=== PATIENT | female | born 1975 | race Two or more races ===

== ENCOUNTER → 2024-04-01 | Outpatient (CLI) | payer MEDICAID, SELFPAY ==
--- NOTE | 2024-04-01 12:00 | XR_ITS ---
Examination: MRI orbits face neck, without intravenous contrast. MRI orbits face neck , with intravenous contrast. Exam date and time: April 01, 2024 1212 hours Comparison October 20, 2023 INDICATIONS: Diagnosis malignant neoplasm thyroid gland, MR orbits October 20, 2023 left carotid triangle lymphadenopathy, the largest lymph node 12 mm, right carotid triangle lymphadenopathy, the largest lymph node 9 mm Technique: Multiple axial, sagittal and coronal images of the orbits face neck have been obtained with the Siemens high-resolution 1.5 Susan MRI scanner. Images obtained included T2 weighted fat suppressed sagittal sections, TR 3500, TE 46, T2 weighted coronal fat suppressed images, TR 3050, TE 84, T2-weighted transverse fat suppressed images, TR 30-60, TE 63, proton density transverse images, TR 4720, TE 46, and T1 weighted coronal images, TR 560, TE 13. Axial, sagittal and coronal images are obtained post intravenous injection 14 cc gadolinium. Findings: Large retention cysts in the right maxillary antrum Mild soft tissue tonsillar hypertrophy Bilateral carotid triangle lymph nodes again noted, the largest on the right side millimeters on the left side 8 mm Subcentimeter submental lymph nodes Symmetrical submandibular glands The larynx appears normal Normal epiglottis IMPRESSION: No current pathologic lymphadenopathy, consider 3-6 month follow-up ultrasound soft tissue neck
== END | disposition home or self-care (01) ==
LOC: SMRI 11:59
PROVIDERS: PCP Family Medicine; Referring Provider Internal Medicine Hematology & Oncology; Visit Provider Internal Medicine Hematology & Oncology
DX: C73 Malignant neoplasm of thyroid gland (principal)
CPT/HCPCS: 70543; A9579

== ENCOUNTER → 2024-04-07 | Outpatient (CLI) | payer MEDICAID, SELFPAY ==
[2024-04-07 16:46] LABS: Basophils % (Auto) 1 % (0-2.5); Eosinophils # (Auto) 0.5 Thou/mm3 (0.0-0.5); Eosinophils % (Auto) 7 % (0-10); Hematocrit 40.1 % (36.0-46.0); Hemoglobin 13.7 g/dL (12.0-16.0); Immature Granulocytes % (Auto) 1 % (0-0); Immature Granulocytes Auto 0.05 Thou/mm3 (0.00-0.00); Lymphocytes # (Auto) 1.4 Thou/mm3 (1.0-4.8); Lymphocytes % (Auto) 22 % (10-50); Mean Corpuscular HGB Conc 34.2 g/dl (31.0-37.0); Mean Corpuscular Hemoglobin 28.3 pg (25.0-35.0); Mean Corpuscular Volume 83 fL (80-100); Monocytes # (Auto) 0.5 Thou/mm3 (0.0-0.8); Monocytes % (Auto) 7 % (0-12); Neutrophils # (Auto) 4.2 Thou/mm3 (1.8-7.7); Neutrophils % (Auto) 63 % (37-80); Nucleated Red Blood Cell % 0 /100 WBC (0); Platelet Count 401 Thou/mm3 (140-440); RDW Standard Deviation 37.5 fL (36.4-46.3); Red Blood Count 4.84 Miln/mm3 (4.00-5.20); White Blood Count 6.6 Thou/mm3 (3.6-11.0)
[2024-04-07 17:12] LABS: Alanine Aminotransferase 30 U/L (10-49); Albumin, Serum 4.4 gm/dL (3.5-5.0); Albumin/Globulin Ratio 1.6 (1.2-2.2); Alkaline Phosphatase 60 U/L (46-116); Anion Gap 8 (7-16); Aspartate Amino Transferase 17 U/L (0-34); BUN/Creatinine Ratio 16 Ratio (12-20); Bilirubin,Total 0.3 mg/dL (0.3-1.2); Blood Urea Nitrogen 14 mg/dL (9-23); Carbon Dioxide 25.1 mMol/L (20.0-31.0); Carcinoembryonic Antigen 1.4 ng/mL (0.0-5.0); Chloride 102 mMol/L (98-107); Creatinine (Component) 0.9 mg/dL (0.6-1.3); Globulin 2.8 gm/dL (2.3-3.5); Glucose 163 mg/dL (74-106); Osmolality,Calculated 274 (275-295); Potassium 4.1 mMol/L (3.4-5.1); Sodium 135 mMol/L (136-145); Thyroid Stimulating Hormone 0.55 uIU/mL (0.55-4.78); Total Protein 7.2 gm/dL (5.7-8.2); eGFR > 60 See Note
[2024-04-13 07:01] LABS: Thyroglobulin Antibodies* <1 IU/mL (< OR = 1)
== END | disposition home or self-care (01) ==
LOC: SCTO 15:36
PROVIDERS: PCP Family Medicine; Referring Provider Internal Medicine Hematology & Oncology; Visit Provider Internal Medicine Hematology & Oncology
DX: C73 Malignant neoplasm of thyroid gland (principal)
CPT/HCPCS: 36415; 80053; 82378; 84439; 84443; 85025; 86800

== ENCOUNTER 2024-04-08 09:58 | Outpatient (RCR) | payer MEDICAID, SELFPAY ==
--- NOTE | 2024-04-19 20:18 | CTCFLWUP_ITS ---
Patient: KENZIE FRIEND : 1975 Page 4 of 5 FOLLOW UP NOTE DATE OF SERVICE: 04/08/2024 NAME: KENZIE FRIEND ACCOUNT: [id number] : 1975 AGE: 48 DIAGNOSIS: History of stage II (pT1b N1b cM0) papillary thyroid carcinoma s/p total thyroidectomy and bilateral central neck dissection (06/11/2022) followed by radioactive iodine treatment (11/02/2022). 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 REASON FOR TODAY?S VISIT: This is office follow-up visit. Ms. Friend is here at [facility]. Lately, our MA is helping with the translation. Since last visit kasia ent had CT-guided biopsy of the enlarged lymph node on the left side of the neck. Pathology showed i t to be benign lesion. Ms. Friend denies any other complaints today. Denies any cough, chest pain, abdominal pain o r leg cramps. Ambulating well without any help. HISTORY OF PRESENT ILLNESS: This is a 48-year-old Kyrgyz-speaking female with history of pa pillary thyroid carcinoma. 01/18/2022: Ms. Friend had CT-guided biopsy of the right neck lymph node 06/11/2022: Patient had surgery done at [facility] 06/15/2022: CT scan of the soft tissue of the neck with contrast is started on Eliquis. 10/23/2022: Eliquis discontinued. 11/02/2022: Patient had 49.5 mCi of I-131 radioiodine treatment. 11/20/2022: Ultrasound of the soft tissue of the neck? 11/27/2022: CT scan of the soft tissue of the neck with IV contrast 06/13/2023: MRI of the neck 06/17/2023: Thyroglobulin antibody less than 1.0, thyroglobulin 0.7, TSH 8.49. Dr. Calderon has increased l evothyroxine. MRI of the orbits, face, neck with and without contrast? 10/20/2023: MRI of the face and neck with IV contrast PAST MEDICAL HISTORY: HTN Diabetes GERD High?cholesterol PAST SURGICAL HISTORY: ?-x?1 MEDICATIONS: 1. albuterol sulfate - 90 mcg/actuation 2 Puff(s) Twice a Day 2. atorvastatin - 20 mg 1 tab Every day before sleep 3. atorvastatin - 40 mg 1 tab In the morning 4. azelastine - 0.05 % 1 drops Daily 5. calcitriol - 0.25 mcg 1 Capsule Daily 6. Calcium + Vitamin D - 600 mg calcium- 200 unit 1 tab Twice a Day 7. Daily Car W/Minerals - 1 tab Daily 8. levothyroxine - 137 mcg 1 tab Daily 9. levothyroxine - 125 mcg 1 tab Daily 10. levothyroxine - 150 mcg 1 tab Daily 11. loratadine - 10 mg 1 tab Daily 12. losartan - 50 mg 1 tab Daily 13. medroxyPROGESTERone - 10 mg 1 tab As directed 14. metFORMIN - 500 mg 1 tab Daily 15. omeprazole - 20 mg 1 Daily?Palabra Meds? Medications Last Reconciled by Rocio Mccullough MA on 10/22/2023 ALLERGIES: No Known Drug Allergies REVIEW OF SYSTEMS:?Clone ROS? Neurological: No headache, seizures or blurring of vision. Gastrointestinal: No nausea, vomiting, diarrhea or constipation. Cardiovascular: No palpitations or angina pains. Respiratory: No cough, chest pain or shortness of breath. PHYSICAL EXAMINATION:?ClonePE? VITAL SIGNS: Alert and oriented x 4 no masses palpable on both sides of the neck CHEST: Clear to auscultation. No wheezes or rales audible. CARDIAC: Rhythm regular, no murmurs or gallops present. ABDOMEN: Soft. No hepatosplenomegaly. EXTREMITIES: No pedal edema or cyanosis. ASSESSMENT and plan: #1 history of papillary thyroid carcinoma status post thyroidectomy MRI of the orbits, face and neck with and without contrast showed 12 mm enlarged lymph node in the le ft carotid triangle as well as a 9 mm lymph node in the right carotid triangle. CT-guided biopsy of t he left-sided cervical lymph node showed scant lymphoid tissue favoring benign. And is on levothyroxine calcium and vitamin D Continue to monitor CBC CMP TSH T4 Endocrinology follow-up #2 iron deficiency anemia was treated with Venofer Patient's hemoglobin is normal now Electronically Signed by Dr Yu CC: PCP: Sav Wilson Referring: Sav Wilson This document was completed utilizing speech recognition software. Grammatical errors, random word in sertions, pronoun errors, and incomplete sentences are an occasional consequence of this system due t o software limitations, ambient noise, and hardware issues. Any formal questions or concerns about th e content, text or information contained within the body of this dictation should be directly address ed to the provider for clarification.
== END 2024-04-11 23:59 | disposition home or self-care (01) ==
LOC: SCTC 09:58
PROVIDERS: PCP Family Medicine; Referring Provider Family Medicine; Visit Provider Internal Medicine Hematology & Oncology
DX: C73 Malignant neoplasm of thyroid gland (principal); E89.0 Postprocedural hypothyroidism; Z79.890 Hormone replacement therapy; Z86.2 Personal history of diseases of the blood and blood-forming organs and certain disorders involving the immune mechanism
CPT/HCPCS: 99212; G0463

== ENCOUNTER 2024-05-04 23:21 | Emergency (ER) | payer MEDICAID, SELFPAY ==
[2024-05-04 23:30] VITALS: BP 155/90; PULSE 104; RESP 22; TEMP 36.9; O2SAT 98
--- NOTE | 2024-05-04 23:33 | EDNOTE_ITS ---
ED Fever RME/HPI General Chief Complaint: Fever Stated Complaint: FEVER / GENERAL PAIN Time Seen by Provider: 05/04/24 23:23 Arrival date/time: 05/04/24 23:21 RME / HPI RME / HPI Narrative: This section includes all my notes and documentations, including HPI, PE, and ED course. Jose Calderon MD HPI: 48-year-old female here with about a week history of worsening cough, productive cough, purulent sputum, and dyspnea. With headache and fever and chills and bodyaches and malaise. No other complaints. ROS: All negative except as documented in HPI. Physical Exam: General: Alert and oriented. No acute distress when remaining still. Eyes: Conjunctivae and lids clear. ENT: No nasal congestion. Pharynx normal. TM normal bilaterally. Neck: Supple. Heart: RRR. Lungs: No respiratory distress. Good air movement with rhonchi. Abdomen: Soft and nontender. Legs: No clubbing, cyanosis, edema. Skin: Warm and dry. Neuro: Alert and oriented X 3. I reviewed all diagnostic test results. My interpretation of the chest x-ray is increased bronchial markings. COVID/influenza/strep negative. At this point, diagnoses include bronchitis Treatment here included Zofran ODT 4 mg and prednisone 60 mg and Zithromax 500 mg and two Tylenol #3. Significant improvement noted. Recommended a trial of treatment at home. Based on my best medical judgment, made decision no further evaluation or treatment indicated at this time. Patient understands and agrees to the discharge instructions customized and printed, see below. Discharge instructions from Dr. Calderon: --No physical exertion for 3 days to help rest the lungs. ?-No smoking or exposure to smoking or pets or dust or cold or humidity. --Zithromax to kill the germs causing the bronchitis. --Prednisone to help decrease the swelling in the airways. --Albuterol 2 puffs every 4-6 hours today to help keep the airways open. Then as needed for cough or shortness of breath. --See a private doctor on 05/08/2024 if not completely better. --Seek immediate medical care with worsening or with any concerns. Jose Calderon MD Related Data Home Medications ?Medication ?Instructions ?Recorded ?Confirmed albuterol sulfate 90 mcg/actuation 2 puff inhalation Q6H PRN Wheezing 10/01/19 08/13/23 aerosol inhaler (ProAir HFA) metformin 500 mg tablet 500 mg PO BID 01/16/22 11/07/23 omeprazole 20 mg tablet,delayed 20 mg PO DAILY 01/18/22 11/07/23 release atorvastatin 40 mg tablet 40 mg PO QDAY 06/18/23 11/07/23 calcitriol 0.25 mcg capsule 0.25 mcg PO QDAY 06/18/23 11/07/23 loratadine 10 mg tablet 10 mg PO QDAY PRN ALLERGIES 06/18/23 11/07/23 losartan 50 mg tablet 50 mg PO QDAY 06/18/23 11/07/23 fluticasone propionate 50 2 spray intranasal QDAY 08/13/23 08/13/23 mcg/actuation nasal spray,suspension medroxyprogesterone 10 mg tablet 10 mg PO QDAY 08/13/23 08/13/23 multivitamin 1 tab PO QDAY 08/13/23 11/07/23 calcium carb-ergocalciferol (vit 1,200 tab PO BID 08/15/23 11/07/23 D2) 600 mg calcium-200 unit tablet diltiazem HCl 30 mg tablet 30 mg PO PRN PRN palpitations 11/07/23 11/07/23 (Cardizem) levothyroxine 137 mcg tablet 137 mcg PO QDAY 11/07/23 11/07/23 levothyroxine 150 mcg tablet 150 mcg PO DAILY 11/07/23 11/07/23 Previous Rx's ?Medication ?Instructions ?Recorded acetaminophen 650 mg 650 mg PO Q12H #30 tabs 08/17/23 tablet,extended release diphenhydramine HCl 25 mg capsule 25 mg PO TID PRN allergic reaction 08/17/23 (Benadryl) #10 caps docusate sodium 100 mg capsule 100 mg PO BID #30 caps 08/17/23 (Colace) doxycycline monohydrate 100 mg 100 mg PO BID #30 caps 08/17/23 capsule hydrocodone 5 mg-acetaminophen 300 1 tab PO Q8H PRN pain #14 tabs 08/17/23 mg tablet ibuprofen 800 mg tablet 800 mg PO Q8H PRN pain #30 tabs 08/17/23 metronidazole 500 mg tablet 500 mg PO Q12H #30 tabs 08/17/23 ondansetron 4 mg disintegrating 4 mg PO Q8H PRN nausea and 08/17/23 tablet vomiting #14 tabs albuterol sulfate 90 mcg/actuation 2 inh inhalation QID PRN shortness 05/05/24 aerosol inhaler of breath or wheezing #8.5 grams azithromycin 500 mg tablet 500 mg PO QDAY 3 days #3 tabs 05/05/24 (Zithromax TRI-NORA) prednisone 20 mg tablet 40 mg PO DAILY 3 days #6 tabs 05/05/24 Allergies Allergy/AdvReac Type Severity Reaction Status Date / Time No Known Allergies Allergy Verified 11/06/23 09:32 Review of Systems Review of Systems Systems Reviewed: All systems reviewed, normal except as documented Past Medical History Past Medical History NEUROLOGIC: Negative Neurological Disorders, Cerebrovascular Accident, Transient Ischemic Attacks (TIA), Dementia, Alzheimer's Disease, Parkinson's Disease, Brain Tumor, Meningitis, Seizures, Epilepsy, Multiple Sclerosis, Cerebral Palsy, Amyotrophic Lateral Sclerosis (ALS/Linda Gehrig's), Guillain-Call Syndrome, Spina Bifida, Paralysis, Peripheral Neuropathy, Mendoza's Palsy, Subdural Hematoma, Migraine, Head Trauma, Spinal Cord Injury or Traumatic Brain Injury CARDIAC: Positive Cardiac Disorders, Cardiac Arrhythmia, Hypercholesterolemia, Edema and Hypertension; Negative Myocardial Infarction, Atrial Fibrillation, Angina, Heart Murmur, Coronary Artery Disease, Atherosclerotic Heart Disease, Peripheral Vascular Disease, Aneurysm, Congestive Heart Failure, Congenital Heart Disease, Valvular Heart Disease, Rheumatic Fever, Cardiomyopathy, Pericarditis, Cellulitis, Deep Vein Thrombosis, Hypotension or Varicose Veins RESPIRATORY: Negative Chronic Obstructive Pulmonary Disease (COPD), Asthma, Bronchitis, Emphysema, Pneumonia, Pulmonary Fibrosis, Cystic Fibrosis, Tuberculosis, Pulmonary Embolism, Pulmonary Edema or Sleep Apnea GASTROINTESTINAL: Positive Gastrointestinal Disorders (gastritis, constipation), Hemorrhoids and Obesity; Negative Hepatitis, Cirrhosis, Pancreatitis, Celiac Disease, Gall Bladder Disease, Gastrointestinal Bleed, Esophageal Varices, Hernandez's Esophagus, Colitis, Ulcerative Colitis, Diverticulitis, Diverticulosis, Ulcer, Colorectal Cancer, Irritable Bowel, Crohn's Disease, Obstructive Bowel, Hiatal Hernia or Gastroesophageal Reflux Disease GENITOURINARY: Negative Genitourinary Disorders, Renal Disease, Kidney Stones, Polycystic Kidney Disease, Neurogenic Bladder, Inguinal Hernia or Dialysis REPRODUCTIVE: Positive Previous Pregnancies; Negative Breast Cancer, Endometriosis, Genital Herpes, Gonorrhea, Pelvic Infl ammatory Disease, Syphilis or Uterine Prolapse MUSCULOSKELETAL: Positive Musculoskeletal Disorders and Arthritis; Negative Muscular Dystrophy, Myasthenia Gravis, Marfan's Syndrome, Bone Cancer, Rheumatoid Arthritis, Osteoporosis, Degenerative Disk Disease, Gout, Scoliosis, Carpal Tunnel Syndrome, Fibromyalgia, Fractures, Degenerative Joint Disease, Osteomyelitis or Poliovirus ENT: Negative Cataracts, Glaucoma, Blind, Retinal Detachment, Macular Degeneration, Ear Infection, Deafness, Head Trauma or Eye Prosthesis ENDOCRINE: Positive Endocrine Disorders, Diabetes Mellitus Type 2 and Hypothyroidism; Negative Diabetes Mellitus Type 1, Hypoglycemia, Gregory's Syndrome, Gadsden's Disease, Hyperthyroidism, Parathyroid Disease, Pituitary Disease, Systemic Lupus Erythematosus, Syndrome of Inappropriate Antidiuretic Hormone (SIADH), Adrenal Disease or Graves' Disease HEMATOLOGIC: Positive Blood Disorders and Anemia (Iron infusions weekly in past total of 10 infusions 05/2023-08/13/2023); Negative Leukemia, Hemophilia, Thalassemia, Sickle Cell Disease or Clotting Problems PSYCHO/SOCIAL: Positive Depression and Anxiety; Negative Psychiatric Problems, Schizophrenia, Recreational Drug Use, Bipolar Disorder, Behavior Problems, Self-Mutilation, Attention Deficit Disorder, Attention Deficit Hyperactivity Disorder, Depression, Post Traumatic Stress Disorder or Eating Disorder OTHER HISTORY: Positive Hospitalization (surgery), Shingles, Blood Transfusions, Anesthesia Reactions (takes high doses to take effect), Radiation Therapy (2022), Chicken Pox, Measles and Cancer (Thyroid cancer); Negative Autoimmune Disease, Down Syndrome, Autism, Developmental Delay, Falls, Blood Transfusion Reaction, Organ Transplant, Chemotherapy, Hyperbaric Therapy, MRSA, VRSA, Vancomycin-Resistant Enterococci, Human Immunodeficiency Virus (HIV), Mumps, Rubella ([place] Measles), Pertussis, Clostridium Difficile, Breast Cancer, Cervical Cancer, Colorectal Cancer, Lung Cancer or Ovarian Cancer Family History FAMILY HISTORY: Positive Family Cardiac Disorders and Family Cancer; Negative Family Psychiatric Problems, Family Respiratory Disorders, Family Gastrointestinal Problems, Family Surgery or Family Anesthesia Reaction Surgical History SURGICAL: Positive Endocrine Surgery, Thyroidectomy (extensive with lyph nodes removed 05/2022), Hysterectomy (08/2023) and Section (2011); Negative Cardiac Surgery, Open Heart Surgery, Coronary Artery Bypass Graft, Valve Replacement, Vascular Surgery, Coronary Stent, Cardiac Catheterization, Pa cemaker, Angiogram, Auto Implanted Cardiovert Defib, Carotid Endarterectomy, Ear Surgery, Tympanostomy Tube, Eye Surgery, Nose Surgery, Oral Surgery, Tonsillectomy, Adenoidectomy, Cochlear Implant, Corneal Transplant, Throat Surgery, Abdominal Surgery, Tracheostomy, Gastric Bypass Surgery, Gastrostomy, Bowel Surgery, Nephrectomy, Joint Replacement, Amputation, Open Reduction Internal Fixation, Arthroscopy, Neurologic Surgery, Brain Shunt, Mastectomy, Lumpectomy, Tubal Ligation or Organ Transplant Social History SMOKING STATUS: Never smoker Physical Exam Narrative Physical exam: As noted in HPI. Course Course Course Narrative: CXR is ordered for determining the etiology of fever. Quality Measures none Orders Category Date Time Status Bedside COVID-19 Antigen Test NOW Care 05/04/24 23:35 Active Bedside Influenza A&B Antigen Test NOW Care 05/04/24 23:35 Completed XR chest 1V portable Stat Exams 05/05/24 00:01 Taken Strep A Rapid Stat Lab 05/04/24 23:44 Completed ACETAMINOPHEN w/COD 300-30 [Tylenol w/Cod #3] Med 05/04/24 23:35 Discontinued 2 tab PO X1 ONE Azithromycin Po [Zithromax PO] Med 05/05/24 01:02 Discontinued 500 mg PO X1 ONE Ondansetron Odt [Zofran Odt] Med 05/04/24 23:35 Discontinued 4 mg PO X1 ONE predniSONE Med 05/04/24 23:35 Discontinued 60 mg PO X1 ONE Vital Signs Vital signs: Vital Signs Temperature 98.5 F 05/04/24 23:30 Pulse Rate 104 H 05/04/24 23:30 Respiratory Rate 22 H 05/04/24 23:30 Blood Pressure 155/90 H 05/04/24 23:30 Pulse Oximetry (%) 98 05/04/24 23:30 Oxygen Delivery Method Room Air 05/04/24 23:30 Fever Patient data External records reviewed:: [facility] previous records (Per chart review, patient was last seen here on 12/14/22 for abdominal pain.) Clinical information provided by:: patient Social determinants that could affect healthcare access:: none Patient has the following chronic illnesses:: HTN, GERD How is presenting disease/condition affected by chronic disease/condition?: uneffected by Evaluation data The following diagnostics were reviewed and interpreted by me:: lab results and radiology exam(s) Lab and/or radiology exams considered but not ordered:: none Interpretation Summary: Bronchitis Medications / Prescriptions Medications or Prescriptions considered but not ordered:: none Medication administrations:: Medication Administration History Discontinued Medications Acetaminophen/Codeine Phosphate (Acetaminophen W/Cod 300-30 Tablet) 2 tab PO X1 ONE Stop: 05/04/24 23:36 Last Admin: 05/04/24 23:45 Dose: 2 tab Documented By: LEONOR Azithromycin (Azithromycin 250 Mg Tablet) 500 mg PO X1 ONE Stop: 05/05/24 01:03 Last Admin: 05/05/24 01:09 Dose: 500 mg Documented By: EDA Ondansetron HCl (Ondansetron Odt 4 Mg Tabrap) 4 mg PO X1 ONE; Protocol Stop: 05/04/24 23:36 Last Admin: 05/04/24 23:45 Dose: 4 mg Documented By: CB Prednisone (Prednisone 20 Mg Tablet) 60 mg PO X1 ONE Stop: 05/04/24 23:36 Last Admin: 05/04/24 23:44 Dose: 60 mg Documented By: LEONOR See chart Consultations Consultation(s) initiated? (list below): No Diagnosis Fever Differential Diagnosis: community acquired pneumonia, viral infection, influenza and other (COVID, Strep, bronchitis) Most likely diagnosis given after review of the tests above:: bronchitis Admission Indicated Admission indicated?: not indicated Explain why admission is indicated or not indicated:: Admission criteria not met Admission Request Was there a request for admission?: No Disposition Plan Disposition Plan: Discharge Discharge Attestation Discharge Attestation: The patient and all family members were given an opportunity to ask questions a nd understood the discharge instructions. Discharge instructions specifically effects, indications for sooner follow up or return to the emergency department, and the expected course of current diagnosis. Patient condition: Stable Discharge Plan Plan Patient Disposition: HOME (Self Care) Prescriptions/Referrals Prescriptions/Med Rec: New prednisone 20 mg tablet 40 mg PO DAILY 3 Days Qty: 6 0RF Taper: Prednisone Taper 20 mg DAILY for 2 Days and 0 Hour 10 mg DAILY for 2 Days and 0 Hour 5 mg DAILY for 7 Days and 0 Hour albuterol sulfate 90 mcg/actuation HFA aerosol inhaler 2 inh inhalation QID PRN (Reason: shortness of breath or wheezing) Qty: 8.5 0RF azithromycin [Zithromax TRI-NORA] 500 mg tablet 500 mg PO QDAY 3 Days Qty: 3 0RF No Action albuterol sulfate [ProAir HFA] 90 mcg/actuation HFA aerosol inhaler 2 puff IH Q6H PRN (Reason: Wheezing) metformin 500 mg Tablet 500 mg PO BID omeprazole 20 mg Tablet,Delayed Release (Dr/Ec) 20 mg PO DAILY diltiazem HCl [Cardizem] 30 mg Tablet 30 mg PO PRN PRN (Reason: palpitations) levothyroxine 150 mcg tablet 150 mcg PO DAILY Rx Instructions: 150 mcg orally once per week. Other 6 days 137 mcg orally. levothyroxine 137 mcg Tablet 137 mcg PO QDAY losartan 50 mg tablet 50 mg PO QDAY atorvastatin 40 mg tablet 40 mg PO QDAY calcitriol 0.25 mcg capsule 0.25 mcg PO QDAY Patient Comments: JAMES Pollock loratadine 10 mg Tablet 10 mg PO QDAY PRN (Reason: ALLERGIES) multivitamin Tablet 1 tab PO QDAY medroxyprogesterone 10 mg Tablet 10 mg PO QDAY fluticasone propionate 50 mcg/actuation [place],Suspension 2 spray INTRANASAL QDAY Rx Instructions: administer into each nostril calcium carbonate-vitamin D2 600 mg calcium- 200 unit Tablet 1,200 tab PO BID acetaminophen 650 mg tablet extended release 650 mg PO Q12H Qty: 30 0RF hydrocodone-acetaminophen 5-300 mg tablet 1 tab PO Q8H MDD 15 PRN (Reason: pain) Qty: 14 0RF diphenhydramine HCl [Benadryl] 25 mg capsule 25 mg PO TID PRN (Reason: allergic reaction) Qty: 10 0RF ondansetron 4 mg tablet,disintegrating 4 mg PO Q8H PRN (Reason: nausea and vomiting) Qty: 14 0RF ibuprofen 800 mg tablet 800 mg PO Q8H PRN (Reason: pain) Qty: 30 0RF Hold Instructions: Resume on 11/08/23. james chao docusate sodium [Colace] 100 mg capsule 100 mg PO BID Qty: 30 0RF metronidazole 500 mg tablet 500 mg PO Q12H Qty: 30 0RF doxycycline monohydrate 100 mg capsule 100 mg PO BID Qty: 30 0RF Referrals: Temporary Provider,ED [Physician] - In 1 week Problem List Clinical Impression: Bronchitis Patient/Caregiver Discharge Instructions Discharge Activity: activity as tolerated Education Materials: ED Bronchitis with Wheezing (Adult) Additional Instructions: Discharge instructions from Dr. Calderon: --No physical exertion for 3 days to help rest the lungs. ?-No smoking or exposure to smoking or pets or dust or cold or humidity. --Zithromax to kill the germs causing the bronchitis. --Prednisone to help decrease the swelling in the airways. --Albuterol 2 puffs every 4-6 hours today to help keep the airways open. Then as needed for cough or shortness of breath. --See a private doctor on 05/08/2024 if not completely better. --Seek immediate medical care with worsening or with any concerns. Instrucciones de tyler del Dr. Calderon: --No hacer dru?n esfuerzo f?sico salma 3 d?as para ayudar a que los pulmones descansen. --No fumar ni exponerse al humo del tabaco, a las mascotas, al polvo, al fr?o o a la humedad. --Zithromax para matar los g?rmenes que causan la bronquitis. --Prednisona para ayudar a disminuir la hinchaz?n de las v?as respiratorias. --Albuterol 2 inhalaciones cada 4 a 6 horas hoy para ayudar a mantener abiertas las v?as respiratorias. Luego, seg?n sea necesario para la tos o la falta de aire. --Consulte a un m?dico privado el 08/05/2024 si no mejora por completo. --Busque atenci?n m?dica inmediata si la enfermedad empeora o tiene alguna inquietud. Print Language: Croatian Stand Alone Forms: Tamanna Award Info., Patient Portal Info Letter
[2024-05-04] MEDS: predniSONE 20 MG TABLET 60 MG PO (23:44)
[2024-05-04] MEDS: ONDANSETRON ODT 4 MG TABRAP PO (23:45)
[2024-05-04] MEDS: ACETAMINOPHEN w/COD 300-30 TABLET 2 TAB PO (23:45)
--- NOTE | 2024-05-05 00:01 | XR_ITS ---
Examination: PA chest single view Technique: Upright PA chest single view Exam date and time: May 05, 2024 0009 hrs. Comparison July 17, 2022 Indications: Coughing fever worse today Findings: Normal heart size. Lungs are clear. The osseous structures are intact Surgical clips right lower soft tissue neck Impression: No active disease
[2024-05-05 00:13] LABS: Strep A Rapid Negative (Negative)
[2024-05-05] MEDS: AZITHROMYCIN 250 MG TABLET 500 MG PO (01:09)
[2024-05-05 01:12] VITALS: PULSE 88; RESP 18; O2SAT 99
== END 2024-05-05 01:14 | disposition home or self-care (01) ==
PROVIDERS: Emergency Provider Emergency Medicine; PCP Family Medicine
DX: J40 Bronchitis, not specified as acute or chronic (principal)
CPT/HCPCS: 71045; 87400; 87651; 87811; 99283; J7512; Q0162; A9270

== ENCOUNTER → 2024-05-19 | Outpatient (CLI) | payer MEDICAID, SELFPAY ==
[2024-05-19 17:59] LABS: Free T3 3.4 pg/mL (2.3-4.2); Free T4 (Free Thyroxine) 1.86 ng/dL (0.89-1.76); Thyroid Stimulating Hormone 0.62 uIU/mL (0.55-4.78)
[2024-05-19 17:59] LABS: Creatinine MALB Rnd Ur 165 mg/dL (30-125); Microalbumin Creat Ratio 5 mg/gCrea (<30); Microalbumin, Random Urine 8 mg/L (0-300)
== END | disposition home or self-care (01) ==
LOC: COPL 15:23
PROVIDERS: PCP Family Medicine; Referring Provider Internal Medicine Endocrinology, Diabetes & Metabolism; Visit Provider Internal Medicine Endocrinology, Diabetes & Metabolism
DX: E03.9 Hypothyroidism, unspecified (principal); E11.9 Type 2 diabetes mellitus without complications
CPT/HCPCS: 36415; 82043; 82570; 84439; 84443; 84481

== ENCOUNTER 2024-10-12 09:39 | Outpatient (RCR) | payer MEDICAID, SELFPAY ==
--- NOTE | 2024-10-13 05:41 | CTCFLWUP_ITS ---
Patient: KENZIE FRIEND : 1975 Page 6 of 8 FOLLOW UP NOTE DATE OF SERVICE: 10/12/2024 NAME: KENZIE FRIEND ACCOUNT: [id number] : 1975 AGE: 49 INTERVAL HISTORY: Subjective: Chief Complaint Follow-up for papillary thyroid carcinoma status post-thyroidectomy, enlarged lymph nodes on imaging History of Present Illness Micki is a 49-year-old patient with a history of papillary thyroid carcinoma status post-thyroidectomy, presenting for follow-up. The patient underwent thyroid removal surgery on June 11, 2022, followed by radioactive treatment in October 2022. A lymph node was removed and was negative. The patient has been on levothyroxine therapy but reports running out of the 150 microgram dose. They were previously taking 137 micrograms Saturday to Saturday and 150 micrograms on Saturday. The patient reports experiencing palpitations, which may be exacerbated by caffeine intake. Recent imaging studies revealed a 12-millimeter lymph node in the left carotid triangle and a 9-millimeter lymph node in the right carotid triangle. A CT- guided biopsy of the left-sided cervical lymph node showed scant lymphoid tissue, favoring benign results. The patient's adherence to the levothyroxine regimen has been inconsistent due to running out of the higher dose medication. They have been advised to take the medication early in the morning on an empty stomach, wait 40 minutes before eating, and avoid milk products for 2-3 hours after taking the medication. Medications and Supplements - Levothyroxine 137 mcg by mouth Saturday to Saturday, 150 mcg on Saturday - Ran out of 150 mcg dose - TSH is very high; should be very low to avoid stimulation of thyroid - Sebastian Review of Systems Cardiovascular: Positive for palpitations. Objective: Laboratory, Imaging, and Diagnostic Test Results - MRI of orbits, face, and neck: - 12-millimeter lymph node in left carotid triangle - 9-millimeter lymph node in right carotid triangle - CT-guided biopsy of left-sided cervical lymph node: - Result: Scant lymphoid tissue, favoring benign - Hemoglobin: 13.7 g/dL (normal) - TSH (10/02/2024): 6.76 - T3 (10/02/2024): 130 ONCOLOGY HISTORY: DIAGNOSIS: History of stage II (pT1b N1b cM0) papillary thyroid carcinoma s/p total thyroidectomy and bilateral central neck dissection (06/11/2022) followed by radioactive iodine treatment (11/02/2022). 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 DATE OF DIAGNOSIS: 06/11/2022 STAGE/TNM: stage II (pT1b N1b cM0) papillary thyroid carcinoma s/p total thyroidectomy and bilateral central neck dissection (06/11/2022) followed by radioactive iodine treatment (11/02/2022). TREATMENT HISTORY: Care?Plan Start?Date Cycle Day Intent INJECTAFER 05/01/2023 1 14 Palliative VENOfer?200mg?IV?wkly?for?10?weeks 05/16/2023 1 70 Palliative HISTORY OF PRESENT ILLNESS: This is a 49-year-old Namibian-speaking female with history of papillary thyroid carcinoma. 01/18/2022: Ms. Friend had CT-guided biopsy of the right neck lymph node 06/11/2022: Patient had surgery done at [facility] 06/15/2022: CT scan of the soft tissue of the neck with contrast is started on Eliquis. 10/23/2022: Eliquis discontinued. 11/02/2022: Patient had 49.5 mCi of I-131 radioiodine treatment. 11/20/2022: Ultrasound of the soft tissue of the neck? 11/27/2022: CT scan of the soft tissue of the neck with IV contrast 06/13/2023: MRI of the neck 06/17/2023: Thyroglobulin antibody less than 1.0, thyroglobulin 0.7, TSH 8.49. Dr. Calderon has increased levothyroxine. MRI of the orbits, face, neck with and without contrast? 10/20/2023: MRI of the face and neck with IV contrast OTHER MEDICAL HISTORY/CONDITIONS: HTN Diabetes GERD High?cholesterol ?-x?1 FAMILY HISTORY: Cancer History:?Mat aunt - esophogaus; Mat uncle- prostate SOCIAL HISTORY: Occupational?History:?Unemployed Education?Level:?Completed 10th grade Marital?Status:? 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 albuterol sulfate - 90 mcg/actuation 2 Puff(s) Twice a Day 2. Isabel - 30 mg 1 tab Daily 3. atorvastatin - 40 mg 1 tab In the morning 4. atorvastatin - 20 mg 1 tab Every day before sleep 5. azelastine - 0.05 % 1 drops Daily 6. calcitriol - 0.25 mcg 1 Capsule Daily 7. Calcium + Vitamin D - 600 mg calcium- 200 unit 1 tab Twice a Day 8. Daily Car W/Minerals - 1 tab Daily 9. docusate sodium - 100 mg tab Daily 10. levothyroxine - 137 mcg 1 tab Daily 11. levothyroxine - 125 mcg 1 tab Daily 12. levothyroxine - 150 mcg 1 tab Daily 13. losartan - 50 mg 1 tab Daily 14. magnesium citrate - 125 mg Capsule As directed 15. metFORMIN - 500 mg 1 tab Twice a Day 16. omeprazole - 20 mg 1 Daily Medications Last Reconciled by Suze Paul MA on 10/12/2024 ALLERGIES: No Known Drug Allergies REVIEW OF SYSTEMS: A complete 14-point review of systems was performed and is negative except as noted in interval history. PHYSICAL EXAMINATION: VITAL SIGNS: Temperature?97, B/P?136/73, Oxygen?Saturation?98% Weight?161?lbs PAIN: 0 - No pain ECOG Performance Status: 0 - Asymptomatic and fully active GENERAL APPEARANCE: Appears well, in no apparent distress, appropriately interactive. HEENT: Normocephalic, no temporal wasting, normal conjunctiva, no scleral icterus, normal hearing, lips without lesions, neck normal range of motion. CARDIOVASCULAR: Not assessed. PULMONARY: Normal respiratory effort, no respiratory distress or use of accessory muscles, speaking in full sentences, no tachypnea. EXTREMITIES: No pedal edema or cyanosis. SKIN: Normal skin appearance. NEUROLOGIC: Alert and oriented x4. PSHYCHIATRIC: Appropriate affect, mood normal, behavior normal, intact thought and speech. LABORATORY DATA: I have personally reviewed and interpreted each of the patient?s relevant lab tests, abnormal findings are below: Date 08/27/23 04/07/24 ??WHITE?BLOOD?COUNT?(Thou/mm3) ? 6.6 ??RED?BLOOD?COUNT?(Miln/mm3) ? 4.84 ??HEMOGLOBIN?(gm/dl) ? 13.7 ??HEMATOCRIT?(%) ? 40.1 ??PLATELET?COUNT?(Thou/mm3) ? 401 ??NEUTROPHILS?%,?AUTO?(%) ? 63 ??LYMPH?%,?AUTO?(%) ? 22 ??NEUTROPHILS,?AUTO?(Thou/mm3) ? 4.2 ??GLUCOSE,RANDOM?(mg/dL) ? 163?H ??BLOOD?UREA?NITROGEN?(mg/dL) ? 14 ??CREATININE?(mg/dL) ? 0.90 ??SODIUM?(mmol/L) ? 135?L ??POTASSIUM?(mmol/L) ? 4.1 ??CHLORIDE?(mmol/L) ? 102 ??CrCl?(CandG)?(ml/min) ? 72.58 ??AST/SGOT?(Unit/L) ? 17 ??ALT/SGPT?(Unit/L) ? 30 ??ALKALINE?PHOSPHATASE?(Unit/L) ? 60 ??BILIRUBIN,?TOTAL?(mg/dL) ? 0.3 ??PROTEIN?TOTAL?(gm/dl) ? 7.2 ??ALBUMIN,?SERUM?(gm/dl) ? 4.4 ??GLOBULIN?(gm/dl) ? 2.8 ??ALBUMIN/GLOBULIN?RATIO ? 1.6 ??CALCIUM,?SERUM?(mg/dL) ? 9.0 ??CALCIUM?SERUM?(CORRECTED)?(mg/dL) ? 9.0 ??CEA?(O*)?(ng/ml) ? 1.4 ??RETICULOCYTE?ABSOLUTE?AUTO?(Biln/L) 97.0?H ? ASSESSMENT/PLAN: Assessment and Plan: Micki is a 49-year-old patient with a history of papillary thyroid carcinoma status post-thyroidectomy, presenting with abnormal TSH levels and enlarged cervical lymph nodes. Papillary Thyroid Carcinoma, status post-thyroidectomy Assessment: Patient underwent thyroidectomy on June 11, 2022, followed by radioactive treatment in October 2022. MRI of the orbits, face, and neck revealed a 12-millimeter lymph node in the left carotid triangle and a 9-millimeter lymph node in the right carotid triangle. CT-guided biopsy of the left-sided cervical lymph node showed scant lymphoid tissue, favoring benign. A previously removed lymph node was negative. Recent TSH level is elevated at 6.76, which is concerning as it should be suppressed to avoid stimulation of any potential residual thyroid tissue. 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, wait 40 minutes before eating, and avoid milk products for 2-3 hours - Place standing lab orders for TSH and T3 every 2 months - Target TSH should be less than 1 - Refer to college service officer for specialized thyroid cancer follow-up - Follow up with primary care physician for ongoing management - Recommend avoiding caffeine for palpitations - Advise taking supplements like ashwagandha and those with caffeine in the morning, not after lunch - Recommend vitamin D and calcium supplementation due to thyroid medication's effect on bones - Encourage taking thyroid medication at the same time every day, preferably at 5 a.m. - Advise avoiding naps during the day to improve sleep patterns ORDERS: Order # Description [id number] Thyroid Stimulating Hormone + Assay Triiodothyronine (T3) [id number] Comprehensive Metabolic Panel - 12 + CBC with Auto Diff [id number] MD Follow Up 2 Months [id number] DXA L-Spine and Hip Summary Micki, a 49yo patient with papillary thyroid carcinoma, presented for follow-up after thyroidectomy (May 2022) and radioactive treatment (October 2022). Recent imaging showed enlarged lymph nodes (12mm left, 9mm right carotid triangle), with biopsy favoring benign results. TSH was elevated at 6.76, concerning for a patient requiring suppression. The patient reported inconsistent levothyroxine adherence after running out of 150mcg doses and experiencing palpitations. Management included increasing levothyroxine to 150mcg daily, bimonthly TSH/T3 monitoring, endocrinology referral, and recomme ndations for proper medication administration and supplement timing. RETURN TO CLINIC: BILLING AND COMPLIANCE: I reviewed external records from providers outside my specialty as summarized above. I spent a total of 50 minutes on this patient?s care on the day of their visit excluding time spent related to any billed procedures. This time includes time spent with the patient as well as time spent documenting in the medical record, reviewing patients records and tests, obtaining history, placing orders, communicating with other healthcare professionals, counseling the patient, family or caregiver, and/or care coordination for the diagnoses above. Electronically Signed by: {Object.Sanct_ID*PnP.NameFL@M}, {Object.Sanct_ID*PnP.Suffix@U} D: {Object.Sanct_Date} T: {Object.Sanct_Time} CC: PCP: Misbah Barboza Referring: Misbah Barboza This document was completed utilizing speech recognition software. Grammatical errors, random word insertions, pronoun errors, and incomplete sentences are an occasional consequence of this system due to software limitations, ambient noise, and hardware issues. Any formal questions or concerns about the content, text or information contained within the body of this dictation should be directly addressed to the provider for clarification.
== END 2024-11-09 23:59 | disposition home or self-care (01) ==
LOC: SCTC 09:39
PROVIDERS: PCP Family Medicine; Referring Provider Family Medicine; Visit Provider Internal Medicine Hematology & Oncology
DX: C73 Malignant neoplasm of thyroid gland (principal); E89.0 Postprocedural hypothyroidism; Z79.890 Hormone replacement therapy
CPT/HCPCS: 99213; G0463

== ENCOUNTER → 2024-11-18 | Outpatient (CLI) | payer MEDICAID, SELFPAY ==
--- NOTE | 2024-11-18 12:30 | XR_ITS ---
Examination: Thyroid sonography complete TECHNIQUE: Grayscale sonographic images thyroid lobes Date and time: November 18, 2024 1335 hours COMPARISON: CT soft tissue neck August 27, 2023, CT chest May 23, 2023, ultrasound soft tissue neck November 20, 2022 INDICATIONS: Thyroid cancer diagnosis with thyroidectomy May 2022 FINDINGS: Comparison November 20, 2022 No soft tissue mass in the thyroid bed No lymphadenopathy IMPRESSION: No soft tissue mass in the thyroid bed, no lymphadenopathy
--- NOTE | 2024-11-18 13:10 | XR_ITS ---
Examination: Bone densitometry Date and time of exam:November 18, 2024 1338 hours INDICATIONS: Hysterectomy age 48 thyroid carcinoma diagnosis 2022 calcium and vitamin D 2 years Technique: Lumbar spine and hip total bone mineralization values of an calculated. Peak reference and age match control results have been displayed. Findings: Lumbar spine total bone mineralization is1.045 gm/cm2. This is 0.0 standard deviations at peak reference. This is 0.7 standard deviations above age-matched controls. Hip total bone mineralization is 1.024 gm/cm2 This is 0.5 standard deviations above peak reference. This is 0.8 standard deviations above age-matched controls Impression: There is normal mineralization based on lumbar spine measurements. There is normal mineralization based on hip measurements
== END | disposition home or self-care (01) ==
PROVIDERS: PCP Internal Medicine Hematology & Oncology; Referring Provider Internal Medicine Hematology & Oncology; Visit Provider Internal Medicine Hematology & Oncology
DX: C73 Malignant neoplasm of thyroid gland (principal)
CPT/HCPCS: 76536; 77080

== ENCOUNTER → 2024-12-02 | Outpatient (CLI) | payer MEDICAID, SELFPAY ==
[2024-12-02 17:37] LABS: Basophils # (Auto) 0.0 Thou/mm3 (0.0-0.2); Basophils % (Auto) 1 % (0-2.5); Eosinophils # (Auto) 0.3 Thou/mm3 (0.0-0.5); Eosinophils % (Auto) 5 % (0-10); Hematocrit 37.3 % (36.0-46.0); Hemoglobin 13.0 g/dL (12.0-16.0); Immature Granulocytes Auto 0.05 Thou/mm3 (0.00-0.00); Lymphocytes # (Auto) 1.6 Thou/mm3 (1.0-4.8); Lymphocytes % (Auto) 30 % (10-50); Mean Corpuscular HGB Conc 34.9 g/dl (31.0-37.0); Mean Corpuscular Hemoglobin 29.0 pg (25.0-35.0); Mean Corpuscular Volume 83 fL (80-100); Monocytes # (Auto) 0.4 Thou/mm3 (0.0-0.8); Monocytes % (Auto) 8 % (0-12); Neutrophils # (Auto) 3.1 Thou/mm3 (1.8-7.7); Neutrophils % (Auto) 56 % (37-80); Nucleated Red Blood Cell # 0.00 Thou/mm3 (0.00-0.00); Nucleated Red Blood Cell % 0 /100 WBC (0); Platelet Count 301 Thou/mm3 (140-440); RDW Standard Deviation 37.6 fL (36.4-46.3); Red Blood Count 4.48 Miln/mm3 (4.00-5.20); White Blood Count 5.5 Thou/mm3 (3.6-11.0)
[2024-12-02 18:04] LABS: Alanine Aminotransferase 38 U/L (10-49); Albumin, Serum 4.3 gm/dL (3.5-5.0); Albumin/Globulin Ratio 1.9 (1.2-2.2); Alkaline Phosphatase 67 U/L (46-116); Anion Gap 9 (7-16); Aspartate Amino Transferase 26 U/L (0-34); BUN/Creatinine Ratio 19 Ratio (12-20); Bilirubin,Total 0.2 mg/dL (0.3-1.2); Blood Urea Nitrogen 13 mg/dL (9-23); Calcium 9.1 mg/dL (8.3-10.6); Calcium (Corrected) 9.1 mg/dL (8.5-10.1); Carbon Dioxide 26.3 mMol/L (20.0-31.0); Chloride 102 mMol/L (98-107); Creatinine (Component) 0.7 mg/dL (0.6-1.3); Globulin 2.3 gm/dL (2.3-3.5); Glucose 248 mg/dL (74-106); Osmolality,Calculated 281 (275-295); Potassium 3.9 mMol/L (3.4-5.1); Sodium 137 mMol/L (136-145); Thyroid Stimulating Hormone 0.22 uIU/mL (0.55-4.78); Total Protein 6.6 gm/dL (5.7-8.2); eGFR > 60 See Note
[2024-12-08 06:45] LABS: T3,Total* 114 ng/dL (76-181)
== END | disposition home or self-care (01) ==
LOC: SCTO 16:53
PROVIDERS: PCP Family Medicine; Referring Provider Internal Medicine Hematology & Oncology; Visit Provider Internal Medicine Hematology & Oncology
DX: C73 Malignant neoplasm of thyroid gland (principal)
CPT/HCPCS: 36415; 80053; 84443; 84480; 85025

== ENCOUNTER → 2024-12-11 | Outpatient (CLI) | payer MEDICAID, SELFPAY ==
[2024-12-11 14:06] LABS: Glucose Estimated Average 160 mg/dL (80-131); Hemoglobin A1C 7.2 % Hgb (4.8-6.0)
[2024-12-11 14:12] LABS: Alanine Aminotransferase 49 U/L (10-49); Albumin, Serum 4.5 gm/dL (3.5-5.0); Albumin/Globulin Ratio 1.6 (1.2-2.2); Alkaline Phosphatase 59 U/L (46-116); Anion Gap 11 (7-16); Aspartate Amino Transferase 26 U/L (0-34); BUN/Creatinine Ratio 19 Ratio (12-20); Bilirubin,Total 0.3 mg/dL (0.3-1.2); Blood Urea Nitrogen 13 mg/dL (9-23); Calcium 9.0 mg/dL (8.3-10.6); Calcium (Corrected) 9.0 mg/dL (8.5-10.1); Carbon Dioxide 28.0 mMol/L (20.0-31.0); Chloride 100 mMol/L (98-107); Creatinine (Component) 0.7 mg/dL (0.6-1.3); Free T4 (Free Thyroxine) 1.82 ng/dL (0.89-1.76); Globulin 2.9 gm/dL (2.3-3.5); Glucose 135 mg/dL (74-106); Osmolality,Calculated 279 (275-295); Potassium 4.1 mMol/L (3.4-5.1); Sodium 139 mMol/L (136-145); Thyroid Stimulating Hormone 0.37 uIU/mL (0.55-4.78); Total Protein 7.4 gm/dL (5.7-8.2); eGFR > 60 See Note
== END | disposition home or self-care (01) ==
LOC: COPL 12:27
PROVIDERS: PCP Family Medicine; Referring Provider Internal Medicine Endocrinology, Diabetes & Metabolism; Visit Provider Internal Medicine Endocrinology, Diabetes & Metabolism
DX: E03.9 Hypothyroidism, unspecified (principal); E11.9 Type 2 diabetes mellitus without complications
CPT/HCPCS: 36415; 80053; 83036; 84439; 84443

== ENCOUNTER 2024-12-15 11:38 | Outpatient (RCR) | payer MEDICAID, SELFPAY ==
--- NOTE | 2024-12-21 01:31 | CTCFLWUP_ITS ---
Patient: KENZIE FRIEND : 1975 Page 6 of 8 FOLLOW UP NOTE DATE OF SERVICE: 12/15/2024 NAME: KENZIE FRIEND ACCOUNT: [id number] : 1975 AGE: 49 INTERVAL HISTORY: Subjective: Chief Complaint Follow-up for papillary thyroid carcinoma status post-thyroidectomy, enlarged lymph nodes on imaging History of Present Illness Micki is a 49-year-old patient with a history of papillary thyroid carcinoma status post-thyroidectomy, presenting for follow-up. The patient underwent thyroid removal surgery on June 11, 2022, followed by radioactive treatment in October 2022. A lymph node was removed and was negative. Patient is now taking 150 mcg of levothyroxine daily. Recent imaging studies revealed a 12-millimeter lymph node in the left carotid triangle and a 9-millimeter lymph node in the right carotid triangle. A CT- guided biopsy of the left-sided cervical lymph node showed scant lymphoid tissue, favoring benign results. The patient's adherence to the levothyroxine regimen has been inconsistent due to running out of the higher dose medication. They have been advised to take the medication early in the morning on an empty stomach, wait 40 minutes before eating, and avoid milk products for 2-3 hours after taking the medication. Medications and Supplements Levothyroxine 150 mcg Review of Systems Cardiovascular: Positive for palpitations. Objective: Laboratory, Imaging, and Diagnostic Test Results - MRI of orbits, face, and neck: - 12-millimeter lymph node in left carotid triangle - 9-millimeter lymph node in right carotid triangle - CT-guided biopsy of left-sided cervical lymph node: - Result: Scant lymphoid tissue, favoring benign - Hemoglobin: 13.7 g/dL (normal) - TSH (10/02/2024): 6.76 - T3 (10/02/2024): 130 ONCOLOGY HISTORY:?[facility] Oncology Hx? DIAGNOSIS: History of stage II (pT1b N1b cM0) papillary thyroid carcinoma s/p total thyroidectomy and bilateral central neck dissection (06/11/2022) followed by radioactive iodine treatment (11/02/2022). 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 DATE OF DIAGNOSIS: 06/11/2022 STAGE/TNM: stage II (pT1b N1b cM0) papillary thyroid carcinoma s/p total thyroidectomy and bilateral central neck dissection (06/11/2022) followed by radioactive iodine treatment (11/02/2022). TREATMENT HISTORY: Care?Plan Start?Date Cycle Day Intent INJECTAFER 05/01/2023 1 14 Palliative VENOfer?200mg?IV?wkly?for?10?weeks 05/16/2023 1 70 Palliative HISTORY OF PRESENT ILLNESS: This is a 49-year-old Kazakh-speaking female with history of papillary thyroid carcinoma. 01/18/2022: Ms. Friend had CT-guided biopsy of the right neck lymph node 06/11/2022: Patient had surgery done at [facility] 06/15/2022: CT scan of the soft tissue of the neck with contrast is started on Eliquis. 10/23/2022: Eliquis discontinued. 11/02/2022: Patient had 49.5 mCi of I-131 radioiodine treatment. 11/20/2022: Ultrasound of the soft tissue of the neck? 11/27/2022: CT scan of the soft tissue of the neck with IV contrast 06/13/2023: MRI of the neck 06/17/2023: Thyroglobulin antibody less than 1.0, thyroglobulin 0.7, TSH 8.49. Dr. Calderon has increased levothyroxine. MRI of the orbits, face, neck with and without contrast? 10/20/2023: MRI of the face and neck with IV contrast OTHER MEDICAL HISTORY/CONDITIONS: HTN Diabetes GERD High?cholesterol ?-x?1 FAMILY HISTORY: Cancer History:?Mat aunt - esophogaus; Mat uncle- prostate SOCIAL HISTORY: Occupational?History:?Unemployed Education?Level:?Completed 10th grade Marital?Status:? 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 albuterol sulfate - 90 mcg/actuation 2 Puff(s) Twice a Day 2. Isabel - 30 mg 1 tab Daily 3. atorvastatin - 40 mg 1 tab In the morning 4. atorvastatin - 20 mg 1 tab Every day before sleep 5. azelastine - 0.05 % 1 drops Daily 6. calcitriol - 0.25 mcg 1 Capsule Daily 7. Calcium + Vitamin D - 600 mg calcium- 200 unit 1 tab Twice a Day 8. Daily Car W/Minerals - 1 tab Daily 9. docusate sodium - 100 mg tab Daily 10. levothyroxine - 150 mcg 1 tab Daily 11. levothyroxine - 137 mcg 1 tab Daily 12. levothyroxine - 125 mcg 1 tab Daily 13. losartan - 50 mg 1 tab Daily 14. magnesium citrate - 125 mg Capsule As directed 15. metFORMIN - 500 mg 1 tab Twice a Day 16. omeprazole - 20 mg 1 Daily?Palabra Meds? Medications Last Reconciled by Suze Banerjee MD on 12/15/2024 ALLERGIES: No Known Drug Allergies REVIEW OF SYSTEMS: A complete 14-point review of systems was performed and is negative except as noted in interval history. PHYSICAL EXAMINATION:?CloneBlock PE? VITAL SIGNS: Temperature?98, B/P?124/84, Oxygen?Saturation?96% Weight?162?lbs PAIN: 1 - Between no and mild pain GENERAL APPEARANCE: Appears well, in no apparent distress, appropriately interactive. HEENT: Normocephalic, no temporal wasting, normal conjunctiva, no scleral icterus, normal hearing, lips without lesions, neck normal range of motion. CARDIOVASCULAR: Not assessed. PULMONARY: Normal respiratory effort, no respiratory distress or use of accessory muscles, speaking in full sentences, no tachypnea. EXTREMITIES: No pedal edema or cyanosis. SKIN: Normal skin appearance. NEUROLOGIC: Alert and oriented x4. PSHYCHIATRIC: Appropriate affect, mood normal, behavior normal, intact thought and speech. LABORATORY DATA: I have personally reviewed and interpreted each of the patient?s relevant lab tests, abnormal findings are below: Date 12/02/24 12/11/24 12/15/24 ??WHITE?BLOOD?COUNT?(Thou/mm3) 5.5 ? 5.8 ??RED?BLOOD?COUNT?(Miln/mm3) 4.48 ? 4.88 ??HEMOGLOBIN?(gm/dl) 13.0 ? 14.2 ??HEMATOCRIT?(%) 37.3 ? 41.5 ??PLATELET?COUNT?(Thou/mm3) 301 ? 360 ??NEUTROPHILS?%,?AUTO?(%) 56 ? 50 ??LYMPH?%,?AUTO?(%) 30 ? 34 ??NEUTROPHILS,?AUTO?(Thou/mm3) 3.1 ? 2.9 ??GLUCOSE,RANDOM?(mg/dL) ? 135?H 126?H ??BLOOD?UREA?NITROGEN?(mg/dL) ? 13 13 ??CREATININE?(mg/dL) ? 0.70 0.70 ??SODIUM?(mmol/L) ? 139 139 ??POTASSIUM?(mmol/L) ? 4.1 4.1 ??CHLORIDE?(mmol/L) ? 100 101 ??CrCl?(CandG)?(ml/min) ? 92.30 92.58 ??AST/SGOT?(Unit/L) ? 26 39?H ??ALT/SGPT?(Unit/L) ? 49 77?H ??ALKALINE?PHOSPHATASE?(Unit/L) ? 59 61 ??BILIRUBIN,?TOTAL?(mg/dL) ? 0.3 0.3 ??PROTEIN?TOTAL?(gm/dl) ? 7.4 7.3 ??ALBUMIN,?SERUM?(gm/dl) ? 4.5 4.4 ??GLOBULIN?(gm/dl) ? 2.9 2.9 ??ALBUMIN/GLOBULIN?RATIO ? 1.6 1.5 ??CALCIUM,?SERUM?(mg/dL) ? 9.0 8.9 ??CALCIUM?SERUM?(CORRECTED)?(mg/dL) ? 9.0 8.9 ASSESSMENT/PLAN:?Kd Yu Assessment/Plan? Assessment and Plan: Micki is a 49-year-old patient with a history of papillary thyroid carcinoma status post-thyroidectomy, presenting with abnormal TSH levels and enlarged cervical lymph nodes. Papillary Thyroid Carcinoma, status post-thyroidectomy Assessment: Patient underwent thyroidectomy on June 11, 2022, followed by radioactive treatment in October 2022. MRI of the orbits, face, and neck revealed a 12-millimeter lymph node in the left carotid triangle and a 9-millimeter lymph node in the right carotid triangle. CT-guided biopsy of the left-sided cervical lymph node showed scant lymphoid tissue, favoring benign. A previously removed lymph node was negative. Recent TSH level is elevated at 6.76, which is concerning as it should be suppressed to avoid stimulation of any potential residual thyroid tissue. 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, wait 40 minutes before eating, and avoid milk products for 2-3 hours - Place standing lab orders for TSH and T3 every 2 months - Target TSH should be less than 1 11/18/2024 ultrasound of the thyroid was negative - Take calcium and vitamin D3 daily take with lunch or dinner to avoid taking with the levothyroxine RTC in 6 months ORDERS: Order # Description [id number] Comprehensive Metabolic Panel - 12 + CBC with Auto Diff + [id number] Thyroid Stimulating Hormone + Assay Triiodothyronine (T3) [id number] Lupus anticoagulant panel + DORIS - Antinuclear Antibody + Rheumatoid Factor + Thyroglobulin/Thyroglobulin Antibody [id number] Follow Up 6 Month RETURN TO CLINIC: I reviewed the diagnosis, prognosis, and recommended treatment/procedure options with the patient (and/or their legal technical service representative), including the potential benefits, risks, side effects and alternative therapies. We also discussed the option of no treatment and the possibility of clinical trial participation, if applicable. All questions were addressed, and they demonstrated understanding. They provided informed consent to proceed with the proposed plan of care. BILLING AND COMPLIANCE: I reviewed external records from providers outside my specialty as summarized above. I spent a total of 50 minutes on this patient?s care on the day of their visit excluding time spent related to any billed procedures. This time includes time spent with the patient as well as time spent documenting in the medical record, reviewing patients records and tests, obtaining history, placing orders, communicating with other healthcare professionals, counseling the patient, family or caregiver, and/or care coordination for the diagnoses above. Electronically Signed by: Eugene Yu MD T: 1:29 AM CC: PCP: Misbah Barboza Referring: Misbah Barboza This document was completed utilizing speech recognition software. Grammatical errors, random word insertions, pronoun errors, and incomplete sentences are an occasional consequence of this system due to software limitations, ambient noise, and hardware issues. Any formal questions or concerns about the content, text or information contained within the body of this dictation should be directly addressed to the provider for clarification.
== END 2025-01-10 23:59 | disposition home or self-care (01) ==
LOC: SCTC 11:38
PROVIDERS: PCP Family Medicine; Referring Provider Family Medicine; Visit Provider Internal Medicine Hematology & Oncology
DX: C73 Malignant neoplasm of thyroid gland (principal); E89.0 Postprocedural hypothyroidism; Z92.3 Personal history of irradiation; Z79.890 Hormone replacement therapy
CPT/HCPCS: 99212; G0463

== ENCOUNTER → 2024-12-15 | Outpatient (CLI) | payer MEDICAID, SELFPAY ==
[2024-12-15 13:42] LABS: Basophils # (Auto) 0.1 Thou/mm3 (0.0-0.2); Basophils % (Auto) 1 % (0-2.5); Eosinophils # (Auto) 0.4 Thou/mm3 (0.0-0.5); Eosinophils % (Auto) 6 % (0-10); Hematocrit 41.5 % (36.0-46.0); Hemoglobin 14.2 g/dL (12.0-16.0); Immature Granulocytes Auto 0.07 Thou/mm3 (0.00-0.00); Lymphocytes # (Auto) 2.0 Thou/mm3 (1.0-4.8); Lymphocytes % (Auto) 34 % (10-50); Mean Corpuscular HGB Conc 34.2 g/dl (31.0-37.0); Mean Corpuscular Hemoglobin 29.1 pg (25.0-35.0); Mean Corpuscular Volume 85 fL (80-100); Monocytes # (Auto) 0.4 Thou/mm3 (0.0-0.8); Monocytes % (Auto) 7 % (0-12); Neutrophils # (Auto) 2.9 Thou/mm3 (1.8-7.7); Neutrophils % (Auto) 50 % (37-80); Nucleated Red Blood Cell # 0.00 Thou/mm3 (0.00-0.00); Nucleated Red Blood Cell % 0 /100 WBC (0); Platelet Count 360 Thou/mm3 (140-440); RDW Standard Deviation 37.3 fL (36.4-46.3); Red Blood Count 4.88 Miln/mm3 (4.00-5.20); White Blood Count 5.8 Thou/mm3 (3.6-11.0)
[2024-12-15 13:54] LABS: Alanine Aminotransferase 77 U/L (10-49); Albumin, Serum 4.4 gm/dL (3.5-5.0); Albumin/Globulin Ratio 1.5 (1.2-2.2); Alkaline Phosphatase 61 U/L (46-116); Anion Gap 11 (7-16); Aspartate Amino Transferase 39 U/L (0-34); BUN/Creatinine Ratio 19 Ratio (12-20); Bilirubin,Total 0.3 mg/dL (0.3-1.2); Blood Urea Nitrogen 13 mg/dL (9-23); Calcium 8.9 mg/dL (8.3-10.6); Calcium (Corrected) 8.9 mg/dL (8.5-10.1); Carbon Dioxide 26.7 mMol/L (20.0-31.0); Chloride 101 mMol/L (98-107); Creatinine (Component) 0.7 mg/dL (0.6-1.3); Globulin 2.9 gm/dL (2.3-3.5); Glucose 126 mg/dL (74-106); Osmolality,Calculated 279 (275-295); Potassium 4.1 mMol/L (3.4-5.1); Sodium 139 mMol/L (136-145); Thyroid Stimulating Hormone 0.30 uIU/mL (0.55-4.78); Total Protein 7.3 gm/dL (5.7-8.2); eGFR > 60 See Note
[2024-12-15 15:32] LABS: RA Screen Negative (Negative)
[2024-12-21 14:38] LABS: PTT-LA Screen 37 seconds (< OR = 40)
[2024-12-21 14:39] LABS: dRVVT Screen 31 seconds (< OR = 45)
[2024-12-21 19:50] LABS: Thyroglobulin Antibodies <1 IU/mL (< OR = 1)
[2024-12-22 07:40] LABS: ANA Screen, IFA NEGATIVE (NEGATIVE); T3,Total* 113 ng/dL (76-181); Thyroglobulin 0.6 ng/mL
== END | disposition home or self-care (01) ==
LOC: COPL 12:47 → SCTO 12:47
PROVIDERS: PCP Family Medicine; Referring Provider Internal Medicine Hematology & Oncology; Visit Provider Internal Medicine Hematology & Oncology
DX: C73 Malignant neoplasm of thyroid gland (principal)
CPT/HCPCS: 36415; 80053; 84432; 84443; 84480; 85025; 85613; 85730; 86038; 86430; 86800

== ENCOUNTER → 2025-02-16 | Outpatient (CLI) | payer MEDICAID, SELFPAY ==
--- NOTE | 2025-02-16 | XR_ITS ---
Examination: MRI brain without intravenous contrast. Date and time of exam: February 16, 2025, 0729 hours INDICATIONS: Headaches blurred vision 7 months Technique: Multiple axial and sagittal images of the brain obtained. Siemens high-resolution 1.5 Susan short bore scanners utilized. Sagittal sections, T1-weighted, TR 500, TE 14, are performed. Axial sections proton-density and T2-weighted have been obtained. Inversion recovery axial images, TR 9, 260, TE 111, TI 2500. Diffusion weighted images, axial sections, TR 4800, TE 128, B value 1000 Axial sections, ADC map, TR 4800, TE 128 Findings: Enlargement of the sella turcica is not present. The optic chiasm and infundibular are not remarkable. Prepontine and interpeduncular cisterns are not enlarged. There is no localized enlargement of the medulla or camilo. Fourth ventricle and cerebellar tonsils appear normal in position. No subacute area of hemorrhage density is seen. Mass in the cerebellopontine angle region is not evident. Globes symmetrical. Orbital musculature including medial lateral rectus muscles do not exhibit abnormality. Diffusion-weighted images demonstrate no focus of restricted diffusion Large retention cyst right maxillary antrum. Increased white matter signal not seen Mass effect upon the ventricular system is not identified. Impression: Negative for acute hemorrhage, mass effect or midline shift No acute infarct. No MR findings diagnostic for demyelinating disease Large retention cyst in the right maxillary antrum Significant chronic ethmoid sinus disease
== END | disposition home or self-care (01) ==
LOC: SMRI 07:03
PROVIDERS: Referring Provider Family Medicine; Visit Provider Family Medicine
DX: M27.40 Unspecified cyst of jaw (principal); J32.2 Chronic ethmoidal sinusitis
CPT/HCPCS: 70551

== ENCOUNTER → 2025-02-22 | Outpatient (CLI) | payer MEDICAID, SELFPAY ==
--- NOTE | 2025-02-22 17:00 | XR_ITS ---
Examination: MRI lumbar spine without contrast Date and time of exam: February 22, 2025, 1741 hours INDICATIONS: Low back pain 3 years radiating down the legs to the feet numbness in the feet weakness in the legs Technique: Multiple MRI axial and sagittal sections lumbar spine. Sagittal T2-weighted images, TR 3500, TE 118 T1 weighted transverse sections, TR 688 T8.5, T2-weighted sagittal sections T1 weighted sagittal sections TR 621, TE 30 T2 axial sections, TR 4, 190, TE 84. Findings: Adequate alignment lumbar vertebral bodies. No lumbar fracture. Normal marrow signal lumbar vertebral bodies. Mild diffuse lumbar disc desiccation. No lumbar disc narrowing. No spondylolisthesis. No abnormality of the conus medullaris or cauda equina Axial images demonstrate no focal lumbar disc protrusion IMPRESSION: Satisfactory alignment lumbar vertebral bodies. No lumbar fracture or lumbar disc narrowing No focal lumbar disc protrusion
== END | disposition home or self-care (01) ==
LOC: SMRI 16:43
PROVIDERS: PCP Family Medicine; Referring Provider Family Medicine; Visit Provider Family Medicine
DX: M54.50 Low back pain, unspecified (principal)
CPT/HCPCS: 72148

== ENCOUNTER → 2025-03-04 | Outpatient (CLI) | payer MEDICAID, SELFPAY ==
--- NOTE | 2025-03-04 10:00 | XR_ITS ---
EXAMINATION: MRI ORBIT face neck without intravenous contrast MRI ORBIT face neck with intravenous contrast Date and time: March 04, 2025, 1122 hours, comparison April 01, 2024 INDICATIONS: History of thyroid cancer, thyroidectomy May 2022, localized lump in the neck dizziness 8 months TECHNIQUE AND FINDINGS: MRI ORBIT face neck images pre and post 15 cc gadolinium FINDINGS: The optic globes exhibit symmetry Optic nerves appear normal bilaterally No retro-orbital mass lesion Ophthalmic musculature is not thickened Postcontrast images do not demonstrate abnormal nasopharyngeal or oropharyngeal enhancement Bilateral parotid triangle lymph nodes, the largest on the left side is 13 mm The larynx appears normal Epiglottis is poorly visualized No prevertebral soft tissue prominence Satisfactory alignment cervical vertebral bodies Subglottic region unremarkable IMPRESSION: Bilateral carotid triangle lymphadenopathy, the largest lymph node on the left side is 13 mm, recommend continued 3 to 6-month follow-up CT soft tissue neck post intravenous contrast
[2025-03-04 13:09] LABS: Basophils # (Auto) 0.1 Thou/mm3 (0.0-0.2); Basophils % (Auto) 1 % (0-2.5); Eosinophils # (Auto) 0.3 Thou/mm3 (0.0-0.5); Eosinophils % (Auto) 4 % (0-10); Hematocrit 39.4 % (36.0-46.0); Hemoglobin 13.3 g/dL (12.0-16.0); Immature Granulocytes Auto 0.06 Thou/mm3 (0.00-0.00); Lymphocytes # (Auto) 1.9 Thou/mm3 (1.0-4.8); Lymphocytes % (Auto) 27 % (10-50); Mean Corpuscular HGB Conc 33.8 g/dl (31.0-37.0); Mean Corpuscular Hemoglobin 28.4 pg (25.0-35.0); Mean Corpuscular Volume 84 fL (80-100); Monocytes # (Auto) 0.5 Thou/mm3 (0.0-0.8); Monocytes % (Auto) 7 % (0-12); Neutrophils # (Auto) 4.3 Thou/mm3 (1.8-7.7); Neutrophils % (Auto) 61 % (37-80); Nucleated Red Blood Cell # 0.00 Thou/mm3 (0.00-0.00); Nucleated Red Blood Cell % 0 /100 WBC (0); Platelet Count 345 Thou/mm3 (140-440); RDW Standard Deviation 37.2 fL (36.4-46.3); Red Blood Count 4.68 Miln/mm3 (4.00-5.20); White Blood Count 7.0 Thou/mm3 (3.6-11.0)
[2025-03-04 13:21] LABS: Glucose Estimated Average 180 mg/dL (80-131); Hemoglobin A1C 7.9 % Hgb (4.8-6.0)
[2025-03-04 13:26] LABS: Alanine Aminotransferase 54 U/L (10-49); Albumin, Serum 4.4 gm/dL (3.5-5.0); Albumin/Globulin Ratio 2.0 (1.2-2.2); Alkaline Phosphatase 60 U/L (46-116); Anion Gap 13 (7-16); Aspartate Amino Transferase 32 U/L (0-34); BUN/Creatinine Ratio 18 Ratio (12-20); Bilirubin,Total 0.4 mg/dL (0.3-1.2); Blood Urea Nitrogen 11 mg/dL (9-23); Calcium 8.8 mg/dL (8.3-10.6); Calcium (Corrected) 8.8 mg/dL (8.5-10.1); Carbon Dioxide 27.1 mMol/L (20.0-31.0); Cardiac Risk Estimate 4.2 RATIO (3.7-5.6); Chloride 100 mMol/L (98-107); Cholesterol 176 mg/dL (132-200); Creatinine (Component) 0.6 mg/dL (0.6-1.3); Free T4 (Free Thyroxine) 1.89 ng/dL (0.89-1.76); Globulin 2.2 gm/dL (2.3-3.5); Glucose 139 mg/dL (74-106); HDL Cholesterol 42 mg/dL (40-60); LDL Cholesterol,Calculated 88 mg/dL (0-130); Osmolality,Calculated 280 (275-295); Potassium 4.3 mMol/L (3.4-5.1); Sodium 140 mMol/L (136-145); Thyroid Stimulating Hormone 0.41 uIU/mL (0.55-4.78); Total Protein 6.6 gm/dL (5.7-8.2); Triglycerides 229 mg/dL (30-150); eGFR > 60 See Note
[2025-03-04 13:35] LABS: Creatinine MALB Rnd Ur 99 mg/dL (30-125); Microalbumin Creat Ratio 7 mg/gCrea (<30); Microalbumin, Random Urine 7 mg/L (0-300)
== END | disposition home or self-care (01) ==
PROVIDERS: PCP Family Medicine; Referring Provider Family Medicine; Visit Provider Family Medicine
DX: R59.0 Localized enlarged lymph nodes (principal); E03.9 Hypothyroidism, unspecified; E11.9 Type 2 diabetes mellitus without complications; E78.5 Hyperlipidemia, unspecified
CPT/HCPCS: 36415; 70543; 80053; 80061; 82043; 82570; 83036; 84439; 84443; 85025; A9577

== ENCOUNTER → 2025-05-10 | Outpatient (CLI) | payer MEDICAID, SELFPAY ==
[2025-05-10 14:47] LABS: Glucose Estimated Average 163 mg/dL (80-131); Hemoglobin A1C 7.3 % Hgb (4.8-6.0)
[2025-05-10 14:53] LABS: Alanine Aminotransferase 51 U/L (10-49); Albumin, Serum 4.6 gm/dL (3.5-5.0); Albumin/Globulin Ratio 1.6 (1.2-2.2); Alkaline Phosphatase 57 U/L (46-116); Anion Gap 13 (7-16); Aspartate Amino Transferase 32 U/L (0-34); BUN/Creatinine Ratio 14 Ratio (12-20); Bilirubin,Total 0.4 mg/dL (0.3-1.2); Blood Urea Nitrogen 11 mg/dL (9-23); Calcium 9.3 mg/dL (8.3-10.6); Calcium (Corrected) 9.3 mg/dL (8.5-10.1); Carbon Dioxide 26.4 mMol/L (20.0-31.0); Cardiac Risk Estimate 4.9 RATIO (3.7-5.6); Chloride 102 mMol/L (98-107); Cholesterol 187 mg/dL (132-200); Creatinine (Component) 0.8 mg/dL (0.6-1.3); Free T4 (Free Thyroxine) 1.75 ng/dL (0.89-1.76); Globulin 2.9 gm/dL (2.3-3.5); Glucose 128 mg/dL (74-106); HDL Cholesterol 38 mg/dL (40-60); LDL Cholesterol,Calculated 96 mg/dL (0-130); Osmolality,Calculated 282 (275-295); Potassium 4.4 mMol/L (3.4-5.1); Sodium 141 mMol/L (136-145); Thyroid Stimulating Hormone 0.82 uIU/mL (0.55-4.78); Total Protein 7.5 gm/dL (5.7-8.2); Triglycerides 265 mg/dL (30-150); eGFR > 60 See Note
[2025-05-10 15:03] LABS: Microalbumin, Random Urine 19 mg/L (0-300)
[2025-05-10 15:25] LABS: Creatinine MALB Rnd Ur 296 mg/dL (30-125); Microalbumin Creat Ratio 6 mg/gCrea (<30)
== END | disposition home or self-care (01) ==
LOC: COPL 13:18
PROVIDERS: PCP Family Medicine; Referring Provider Internal Medicine Endocrinology, Diabetes & Metabolism; Visit Provider Internal Medicine Endocrinology, Diabetes & Metabolism
DX: E03.9 Hypothyroidism, unspecified (principal); E11.9 Type 2 diabetes mellitus without complications
CPT/HCPCS: 36415; 80053; 80061; 82043; 82570; 83036; 84439; 84443